=== PATIENT | female | born 1965 | race Caucasian/White ===

== ENCOUNTER 2024-06-26 11:19 | Emergency (ER) | payer OTHER ==
[~2024-06-26] VITALS: Ht 170.2 cm; Wt 79.3 kg
[2024-06-26] VITALS (8 sets, daily range): BP systolic 135–162; BP diastolic 77–97
[2024-06-26] MEDS ORDERED: MORPHINE SULFATE 4 MG/ML VIAL IV ONE ×3 (11:55→13:55)
[2024-06-26 12:09] LABS: BASO% 0.5 % (0-3); EOS% 0.4 % (0-8); HEMATOCRIT 36.6 % (37.0-47.0); HEMOGLOBIN 10.7 g/dl (12.0-16.0); LYMPH% 7.8 % (15-41); MEAN CELL VOLUME 77.2 fL CALC (80.0-100.0); MEAN CORPUSCULAR HGB 22.6 pG CALC (26.0-32.0); MEAN CORPUSCULAR HGB CONC 29.2 g/dL CAL (32.0-36.0); MONO% 4.7 % (2-13); NEUT# 9.24 thou/uL (2.00-7.15); NEUT% 85.6 % (42-76); RED BLOOD COUNT 4.74 mill/uL (4.20-5.60); RED CELL DISTRI WIDTH 17.7 % (11.5-15.5)
[2024-06-26 12:10] LABS: ACT PARTIAL THROMBO TIME 20.9 SECONDS (20.0-32.5); INTERNATIONAL NORMALIZED RATIO 1.1 RATIO (0.7-1.3)
[2024-06-26 12:11] LABS: PROTHROMBIN TIME 11.3 SECONDS (9.0-12.5)
[2024-06-26 12:25] LABS: ALBUMIN 4.9 g/dL (3.2-5.0); CREATININE 0.9 mg/dL (0.5-1.0); POTASSIUM 3.3 mmol/l (3.5-5.1); TOTAL PROTEIN 8.3 g/dL (6.3-8.2)
[2024-06-26] MEDS ORDERED: TOPROL XL50 MG PO (13:02)
[2024-06-26] MEDS ORDERED: PROTONIX40 M2 PO (13:03)
[2024-06-26] MEDS ORDERED: NORTRIPTYLIN50 MG PO (13:04)
[2024-06-26] MEDS ORDERED: NOVOLIN N100 UNIT SC (13:06)
== END 2024-06-26 14:37 | disposition short-term general hospital (02) | DRG 536 ==
LOC: ED 11:19
PROVIDERS: Emergency Medicine
DX: S72.002A Fracture of unspecified part of neck of left femur, initial encounter for closed fracture (principal); I10 Essential (primary) hypertension; E11.9 Type 2 diabetes mellitus without complications; W10.9XXA Fall (on) (from) unspecified stairs and steps, initial encounter; Y92.008 Other place in unspecified non-institutional (private) residence as the place of occurrence of the external cause; Z79.4 Long term (current) use of insulin